=== PATIENT | female | born 1965 | race Caucasian/White ===

== ENCOUNTER 2017-01-17 16:25 | Emergency (ER) | payer BC ==
[2017-01-17 17:08] VITALS: BP 126/74
--- NOTE | 2017-01-17 17:17 | UC ---
Cardiac HPI - HPI Summary HPI Summary: leaned over the arm of a chair injury her left ribs---has hurt for 1 week -pain with laugh and deep breathing, tender to touch - History of Current Complaint Chief Complaint: UCGeneralIllness Stated Complaint: LEFT RIB PAIN Time Seen by Provider: 01/17/17 17:09 Hx Obtained From: Patient Onset/Duration: Sudden Onset, Lasting Weeks - 1, Still Present Timing: Constant Initial Severity: Moderate Current Severity: Moderate Chest Pain Location: Discrete at: - left chest wall MCL below breast Aggravating Factor(s): Movement, Deep Breaths Alleviating Factor(s): Medication - tylenol Associated Signs & Symptoms: Positive: Negative - Allergy/Home Medications Allergies/Adverse Reactions: Allergies Allergy/AdvReac Type Severity Reaction Status Date / Time No Known Allergies Allergy Verified 01/17/17 17:03 Home Medications: Home Medications Acetaminophen TAB* [Tylenol TAB*] 1,000 mg PO Q6H PRN 01/17/17 [History Confirmed 01/17/17] PMH/Surg Hx/FS Hx/Imm Hx Previously Healthy: Yes - Surgical History Surgical History: Yes Surgery Procedure, Year, and Place: x3, hernia, ectopic , gemma, tubal - Family History Known Family History: Positive: None - Social History Occupation: Employed Full-time Lives: With Family Alcohol Use: None Substance Use Type: None Smoking Status (MU): Never Smoked Tobacco Review of Systems Constitutional: Negative Skin: Negative Eyes: Negative ENT: Negative Respiratory: Negative Cardiovascular: Negative Gastrointestinal: Negative Genitourinary: Negative Motor: Negative Neurovascular: Negative Musculoskeletal: Negative Neurological: Negative Psychological: Negative Is Patient Immunocompromised?: No All Other Systems Reviewed And Are Negative: Yes Physical Exam Triage Information Reviewed: Yes Appearance: Well-Appearing, No Pain Distress, Well-Nourished Vital Signs: Initial Vital Signs Temp 97.7 F 01/17/17 17:04 Pulse 72 01/17/17 17:04 Resp 16 01/17/17 17:04 BP 126/74 01/17/17 17:04 Pulse Ox 99 01/17/17 17:04 Vital Signs Reviewed: Yes Eye Exam: Normal Eyes: Positive: Conjunctiva Clear ENT Exam: Normal ENT: Positive: Normal ENT inspection, Hearing grossly normal, Pharynx normal, TMs normal. Negative: Nasal congestion, Nasal drainage, Trismus, Muffled/ hoarse voice Neck exam: Normal Neck: Positive: Supple, Nontender Respiratory Exam: Normal Respiratory: Positive: Chest non-tender, Lungs clear, Normal breath sounds, No respiratory distress, No accessory muscle use Cardiovascular Exam: Normal Cardiovascular: Positive: RRR, No Murmur, Pulses Normal, Brisk Capillary Refill Musculoskeletal Exam: Normal Musculoskeletal: Positive: Strength Intact, ROM Intact, No Edema Neurological Exam: Normal Neurological: Positive: Alert, Muscle Tone Normal Psychological Exam: Normal Diagnostics - Radiology No standard instances Xray Interpretation: No Acute Changes Radiology Interpretation Completed By: ED Physician - Assessment/Plan Course Of Treatment: ice, ibuprofen, follow with pcp prn - Differential Diagnoses - Chest Pain Differential Diagnosis/HQI/PQRI: Chest Wall - Clinical Impression Provider Diagnoses: Rib Contusion Discharge - Discharge Plan Condition: Stable Disposition: HOME Patient Education Materials: Rib Contusion (ED), Ice Pack Application (ED), Ibuprofen (By mouth) Referrals: Ha Bailey MD [Primary Care Provider] - If Needed
--- NOTE | 2017-01-17 18:17 | RAD ---
Indication: Left RIBS pain. 3 views of the left ribs are reviewed. PA views of the chest with dual energy was also reviewed. There is no evidence of fracture. No pneumothorax is noted. Lung oakley are clear. No mediastinal shift is noted. IMPRESSION: No fracture of the left ribs is noted. No pneumothorax is noted.
== END 2017-01-17 18:11 | disposition home or self-care (01) ==
LOC: UCCORT 16:25
DX: S20.219A Contusion of unspecified front wall of thorax, initial encounter (principal); R07.81 Pleurodynia; X50.1XXA Overexertion from prolonged static or awkward postures, initial encounter
CPT/HCPCS: 99211; G0463

== ENCOUNTER 2019-05-26 16:49 | Emergency (ER) | payer BC ==
--- OUTSIDE RECORDS SUMMARY | 2019-05-26 17:19 | XMS REPORT | Continuity of Care Document ---
:1965 External Reference #:[id number] Author Name SHARONDA Watson (transmitted by agent of provider Maryann Garrett) Address [address] [place] [address] Care Team Providers Name Role Phone [facility] - Urology Care Team Information Sewer Pipe Offbearer [phone] Nataly Valencia MD - Gastroenterology Care Team Information Sewer Pipe Offbearer Jose Alejandro Raines MD - Allergy & Care Team Information Sewer Pipe Offbearer [phone] Immunology Ca, In MD Geeta - Gynecology Care Team Information Sewer Pipe Offbearer [phone] Justin Hernandez MD - Neurology Care Team Information Sewer Pipe Offbearer [phone] Jose Alejandro Vasquez M.D. - Neurology Care Team Information Sewer Pipe Offbearer [phone] Ha Bailey MD - Family Care Team Information Sewer Pipe Offbearer Medicine Problems Active Problems Provider Date Dyspareunia Onset: 03/06/2018 Adult health examination Onset: 11/17/2017 Atrophic vaginitis Onset: 11/17/2017 Dizziness and giddiness Onset: 11/17/2017 Dysuria Onset: 11/17/2017 Anxiety SHARONDA Watson Onset: 05/23/2018 Mild depression SHARONDA Watson Onset: 05/23/2018 Palpitations SHARONDA Watson Onset: 05/23/2018 Chest pain SHARONDA Watson Onset: 05/23/2018 Allergic rhinitis SHARONDA Watson Onset: 05/23/2018 Other migraine, not intractable, without Jose Alejandro Vasquez M.D. Onset: 2018 status migrainosus Abnormal results function studies of central Jose Alejandro Vasquez M.D. Onset: nervous system Amnesia Jose Alejandro Vasquez M.D. Onset: 03/30/2019 Social History Type Date Description Comments Sex Unknown ETOH Use Occasionally consumes alcohol Tobacco Use Start: Unknown Patient has never smoked Recreational Drug Use Never Used Drugs Smoking Status Reviewed: 04/18/19 Patient has never smoked Allergies, Adverse Reactions, Alerts Description No Known Drug Allergies Medications Active Medications SIG Qnty Indications Ordering Provider Date Rosuvastatin Calcium take one tablet 90tabs E78.5 Ha 04/18/2019 by mouth at [facility] 5mg Tablets bedtime Crestor take 1 tablet by 30tabs E78.5 Ha 04/18/2019 5mg Tablets mouth everyday at [facility] bedtime Omeprazole Unknown 40mg Capsules DR Sucralfate Unknown 1gm Tablets Immunizations CPT Code Status Date Vaccine Lot # [id number] Given 11/11/2014 Tdap - Tetanus/Diptheria/Acellular Pertussis Vital Signs Date Vital Result Comment 04/18/2019 3:58pm Weight 175.56 lb BP Systolic Sitting 126 mmHg BP Diastolic Sitting 60 mmHg 03/30/2019 10:05am Height 63 inches 5'3" Weight 178.00 lb Heart Rate 76 /min BP Systolic Sitting 120 mmHg BP Diastolic Sitting 76 mmHg Respiratory Rate 18 /min BMI (Body Mass Index) 31.5 kg/m2 Results Test Acquired Facility Test Result H/L Range Note Date Laboratory 04/14/2019 [facility] Influenza A & POSITIVE Abnormal Negative 1 test finding [address] [place] [address] [phone] Laboratory 11/20/2018 [facility] Cytology SEE RESULT 2, 3 test finding [address] [place] [address] [phone] 1 Agriculture Intern: [id number] SEE RESULT BELOW Name: FELI GARCIA : [address]: Tatum MCDONOUGH Acct: [id number] Unit: [id number] AGE: 53 Location: [facility] Re11/20/18 SEX: F Status: REG REF SPEC: [id number] YASSINE: 11/20/18-[address]: Tatum MCDONOUGH REQ: [id number] RECD: 11/20/186811 STATUS: SOUT _ ORDERED: TP IMAGE ANALYS COMMENTS: [id number] Negative for Intraepithelial lesion or Malignancy A. Ectocervical/Endocervical Specimen Adequacy: Satisfactory of evaluation Transformation zone component cannot be definitely identified due to presence of atrophy or other hormonal changes Patient Information: HPV: Thin Layer Pap Test w/reflex to high risk HPV RNA testing when ASCUS Actual Specimen Date: 11/20/18 LMP If Unknown: age 42 Spec Date if unknown: 2017 ?: N Post Menopausal?: Y Hysterectomy?: N Previous Abnormal Pap Smears?:N Signed by and Reported on: EAGLE Sheppard(ASCP) [id number] This Pap test was evaluated with the assistance of the [employer] Test Imaging System. Due to cytologic findings at the truck rental service attendant microscope, comprehensive manual rescreening by a Law Tutor may be required. The Pap Smear is a screening test designed to aid in the detection of premalignant and malignant conditions of the uterine cervix. It is not a diagnostic procedure and should not be used as the sole means of detecting cervical cancer. Both false- positive and false- negative reports do occur. Depending on your risk status, a Pap smear should be obtained and evaluated every 1-3 years. END OF REPORT DEPARTMENT OF PATHOLOGY, [address] [place] [address] Homero Fuentes M.D. 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 03/30/2019 R94.02 Abnormal brain scan Jose Alejandro Vasquez M.D. 11/20/2018 Z12.31 Encounter for screening mammogram for SHARONDA Watson malignant neoplasm of breast 11/20/2018 H68.001 Unspecified Eustachian salpingitis, right SHARONDA Watson ear 11/20/2018 Z01.419 Encounter for gynecological examination SHARONDA Watson (general) (routine) without abnormal findings Plan of Treatment Future Appointment(s):08/10/2019 2:45 pm - Jose Alejandro Vasquez M.D. at [facility]11/22/2019 9:30 am - SHARONDA Watson at [facility]04/18/2019 - Tatum Garcia PAE78.5 HyperlipidemiaNew Medication:Rosuvastatin Calcium 5 mg - take one tablet by mouth at bedtimeCrestor 5 mg - take 1 tablet by mouth everyday at bedtimeNew Labs:Basic Metabolic Panel, Ordered: Liver Function Panel, Ordered: 04/18/19Lipid Profile (Trig/Chol/HDL), Ordered : 04/18/19J11.1 TyvgkkqxlI48.2 Inconclusive mammography findingNew Xrays:US Breast Biopsy Bilateral, Ordered: 04/18/19 Functional Status Functional Condition Comment Date Status Glasses reading Active Mental Status Description No Information Available Referrals Description No Information Available
[2019-05-26 17:34] VITALS: BP 113/78
--- NOTE | 2019-05-26 17:44 | UC ---
Respiratory Complaint HPI - HPI Summary HPI Summary: C/O cough x 4-5 days with predominantly non-productive cough, worse at night. No h/o asthma. - History of Current Complaint Chief Complaint: UCRespiratory Stated Complaint: COUGH, CHEST CONGESTION Hx Obtained From: Patient Onset/Duration: Gradual Onset, Lasting Days - 5, Still Present Timing: Constant Severity Initially: Mild Severity Currently: Mild Pain Intensity: 0 Character: Cough: Nonproductive Aggravating Factors: Deep Breaths, Recumbent Position Alleviating Factors: Nothing Associated Signs And Symptoms: Positive: Wheezing. Negative: URI, Nasal Congestion, Hoarseness, Sinus Discomfort - Allergies/Home Medications Allergies/Adverse Reactions: Allergies Allergy/AdvReac Type Severity Reaction Status Date / Time No Known Allergies Allergy Verified 05/26/19 17:21 Home Medications: Home Medications Omeprazole 20 mg PO DAILY 04/14/19 [History Confirmed 05/26/19] Albuterol HFA INHALER* [Ventolin HFA Inhaler*] 2 puff INH Q4H PRN #1 mdi [Rx] Rosuvastatin Calcium [Crestor] 5 mg PO DAILY 05/26/19 [History Confirmed ] Sucralfate TAB* [Carafate*] 1 gm PO DAILY 05/26/19 [History Confirmed 05/26/19] predniSONE 20 mg TAB [Deltasone 20 MG TAB*] 60 mg PO DAILY #18 tab 05/26/19 [Rx] PMH/Surg Hx/FS Hx/Imm Hx Endocrine History: Dyslipidemia GI/ History: Gastroesophageal Reflux - Surgical History Surgical History: Yes Surgery Procedure, Year, and Place: x3, hernia, ectopic , gemma, tubal ligation - Family History Known Family History: Positive: None, Other - mother with lung cancer Negative: Diabetes - Social History Occupation: Employed Full-time Lives: With Family Alcohol Use: Rare Substance Use Type: None Smoking Status (MU): Never Smoked Tobacco Household Exposure Type: Cigarettes Review of Systems All Other Systems Reviewed And Are Negative: Yes Respiratory: Positive: Shortness Of Breath, Cough Is Patient Immunocompromised?: No Physical Exam Triage Information Reviewed: Yes Appearance: Well-Appearing, No Pain Distress, Well-Nourished Vital Signs: Initial Vital Signs Temp 97.7 F 05/26/19 17:24 Pulse 88 05/26/19 17:24 Resp 15 05/26/19 17:24 BP 113/78 05/26/19 17:24 Pulse Ox 97 05/26/19 17:24 Vital Signs Reviewed: Yes Eyes: Positive: Conjunctiva Clear ENT: Positive: Pharynx normal, TMs normal Neck exam: Normal Respiratory: Positive: Wheezing - expiratory wheeze, worse with coughing. Cardiovascular Exam: Normal Musculoskeletal Exam: Normal Neurological Exam: Normal Psychological Exam: Normal Skin Exam: Normal Respiratory Course/Dx - Differential Dx/Diagnosis Differential Diagnosis/HQI/PQRI: Bronchitis, Laryngitis, Sinusitis Provider Diagnosis: Acute bronchospasm due to viral infection Discharge ED - Sign-Out/Discharge Documenting (check all that apply): Patient Departure All imaging exams completed and their final reports reviewed: No Studies - Discharge Plan Condition: Stable Disposition: HOME Prescriptions: Albuterol HFA INHALER* [Ventolin HFA Inhaler*] 2 puff INH Q4H PRN #1 mdi PRN Reason: Wheezing predniSONE 20 mg TAB [Deltasone 20 MG TAB*] 60 mg PO DAILY #18 tab Patient Education Materials: Bronchospasm (ED), How to Use a Metered-Dose Inhaler (ED) Referrals: Tatum Garcia PA [Primary Care Provider] - - Billing Disposition and Condition Condition: STABLE Disposition: Home
[2019-05-26] MEDS ORDERED: Albuterol/Ipratropium NEB.SOL* Albuterol 2.5 MG/Ipratropium 0.5 MG 3 ML INH ONE (17:46)
== END 2019-05-26 18:20 | disposition home or self-care (01) ==
LOC: UCCORT 16:49
DX: J98.01 Acute bronchospasm (principal); B97.89 Other viral agents as the cause of diseases classified elsewhere; E78.5 Hyperlipidemia, unspecified; K21.9 Gastro-esophageal reflux disease without esophagitis; Z79.899 Other long term (current) drug therapy
CPT/HCPCS: 99212; A9270-GY; G0463